=== PATIENT | male | born 1985 | race Caucasian/White ===

== ENCOUNTER → 2016-10-27 | Outpatient (REF) | payer OTHER | END | disposition home or self-care (01) | LOC: M LAB REF 12:53 | PROVIDERS: ATTEND Otolaryngology | DX: R22.1 Localized swelling, mass and lump, neck (principal); L02.11 Cutaneous abscess of neck; L72.0 Epidermal cyst ==

== ENCOUNTER → 2017-09-08 | Outpatient (REF) | payer OTHER | LOC: M LAB REF 09:00 | PROVIDERS: ATTEND Physician Assistant | DX: J02.9 Acute pharyngitis, unspecified (principal) ==

== ENCOUNTER → 2017-12-10 | Outpatient (CLI) | payer OTHER | LOC: M RAD 12:47 | DX: M75.41 Impingement syndrome of right shoulder (principal) | CPT/HCPCS: 73030 ==

== ENCOUNTER → 2021-08-28 | Outpatient (CLI) | payer OTHER ==
--- NOTE | 2021-08-28 15:02 | REP ---
INDICATION: RIGHT PAIN HEEL. COMPARISON: None. TECHNIQUE: Two views FINDINGS: There is no acute fracture or destructive osseous lesion there is no evidence of a heel spur IMPRESSION: Within normal limits <Electronically signed by Zack Price > 08/28/21 [id number]
== END ==
LOC: M RAD 14:24
PROVIDERS: ATTEND Physician Assistant
DX: M79.671 Pain in right foot (principal)

== ENCOUNTER 2022-02-13 12:51 | Emergency (ER) | payer OTHER ==
[~2022-02-13] VITALS: Ht 180.3 cm; Wt 73.6 kg
[2022-02-13 12:51] VITALS: BP 117/76
== END 2022-02-13 14:33 | disposition left against medical advice (07) ==
LOC: M ED 12:51
DX: Z53.29 Procedure and treatment not carried out because of patient's decision for other reasons (principal)

== ENCOUNTER → 2022-02-14 | Outpatient (CLI) | payer OTHER | LOC: M RAD 11:50 | PROVIDERS: ATTEND Physician Assistant | DX: M79.631 Pain in right forearm (principal) ==